=== PATIENT | female | born 1940 | race Caucasian/White ===

== ENCOUNTER 2017-04-07 19:22 | Emergency (ER) | payer MEDICARE, BC ==
--- NOTE | 2017-04-14 01:20 | ER ---
ADMIT: 04/07/2017 RM/LOC: ER [facility] MR#: [id number] [address] [id number] KAREN ARCHERGisela Maya [address] [place] [address] Emergency Room Report SEX: F AGE: 77 : 1940 DATE: 04/07/2017 ADDENDUM: See T sheet for complete H and P. A 77-year-old female, who is otherwise healthy, comes in with some pain in her left shoulder. She states she does not report any known trauma or activity that would exacerbate this. She does state it is worse with certain movements of her shoulder and lifting her shoulder. It has been going on for about a day and a half. She denies any chest pain with this. Due to her age and left shoulder pain, I did go ahead and get a chest x-ray and checked cardiac enzymes which were normal. An x-ray of her left shoulder revealed no bony abnormality. Her EKG was unremarkable also with normal sinus rhythm, rate of 86. No signs of ST-elevation or acute FL. This does appear to be musculoskeletal with reproducible mild tenderness with palpation and some worsening symptoms with range of motion of the left shoulder. She is to try Aleve twice a day for the next 3 days and follow up with Dr. De Jesus if not improving. DIAGNOSIS: Left shoulder pain. Kendrick Abraham MD/ michelle JOB #: [id number] CC: Moi Johnson MD, Attending Physician Shashi De Jesus MD, Family Physician
== END 2017-04-07 21:20 | disposition home or self-care (01) ==
LOC: ER 19:22
DX: M25.512 Pain in left shoulder (principal); Z90.710 Acquired absence of both cervix and uterus

== ENCOUNTER → 2017-05-06 | Outpatient (CLI) | payer MEDICARE, BC | END | disposition home or self-care (01) | LOC: PTH.S 16:00 | DX: R19.7 Diarrhea, unspecified (principal) ==